=== PATIENT | male | born 1945 | race Asian ===

== ENCOUNTER 2016-12-20 10:33 | Day surgery (SDC) | payer MEDICARE, BC ==
[2016-12-20] MEDS ORDERED: LACTATED RINGERS 1,000 ML IV ONE ×2 (10:40→12:10)
[2016-12-20] MEDS ORDERED: fentaNYL 100 MCG/2 ML VIAL IVP ONE (12:06)
[2016-12-20] MEDS ORDERED: MIDAZOLAM 2 MG/2 ML VIAL IVP ONE (12:06)
[2016-12-20 12:20] VITALS: BP 117/68
== END 2016-12-20 10:34 | disposition home or self-care (01) ==
LOC: SDS 10:33
PROVIDERS: ATTEND Surgery
PROC: 0DBK8ZX Excision of Ascending Colon, Via Natural or Artificial Opening Endoscopic, Diagnostic (ICD-10-PCS; principal; 2016-12-20 12:00)
DX: Z12.11 Encounter for screening for malignant neoplasm of colon (principal); D12.2 Benign neoplasm of ascending colon; D12.4 Benign neoplasm of descending colon; K57.30 Diverticulosis of large intestine without perforation or abscess without bleeding
CPT/HCPCS: 45384; J7120